=== PATIENT | female | born 1970 | race Caucasian/White ===

== ENCOUNTER 2020-08-22 15:40 | Inpatient (IN) | payer MEDICAID ==
[~2020-08-22] VITALS: Ht 157.5 cm; Wt 72.6 kg
[2020-08-22] VITALS (7 sets, daily range): BP systolic 93–109; BP diastolic 40–67
--- NOTE | 2020-08-22 16:40 | NUR ---
49 y.o female arrived with open surgical wound on the right under breast, serosanguious fluid. has slight fever, had surgery august 10. pt reports possible fall and open the surgical wound. AAOx4; heart rate increased. pain 7/10 from the surgical wound site. PMH: N/A Allergies: NKA
--- NOTE | 2020-08-22 16:40 | NUR ---
Patient ambulated to bed 5 with family. RN evaluating the patient at bedside.
--- NOTE | 2020-08-22 16:45 | NUR ---
field contact technician at bedside.
[2020-08-22 16:59] LABS: BASOPHILS % (AUTO) 0.2 % (0.0-2.0); HEMATOCRIT 38.5 % (36-48); HEMOGLOBIN 12.9 g/dL (12.0-16.0); LYMPHOCYTES # (AUTO) 0.6 K/uL (2.5-16.5); LYMPHOCYTES % (AUTO) 4.2 % (20.5-51.1); MEAN CORPUSCULAR HEMOGLOBIN 31 pg (27-31); MEAN CORPUSCULAR HGB CONC 33 g/dL (33-37); MEAN CORPUSCULAR VOLUME 91.5 fL (80-94); MONOCYTES # (AUTO) 0.7 K/uL (0.8-1.0); MONOCYTES % (AUTO) 4.7 % (1.7-9.3); NEUTROPHILS # (AUTO) 13.3 K/uL (1.8-7.7); NEUTROPHILS % (AUTO) 90.9 % (42.2-75.2); PLATELET COUNT (AUTO) 203 K/uL (140-450); RED BLOOD CELL COUNT(AUTO) 4.21 MIL/uL (4.20-5.40); RED CELL DISTRIBUTION WIDTH 13.8 % (11.6-13.7); WHITE BLOOD COUNT (AUTO) 14.6 K/uL (4.8-10.8)
--- NOTE | 2020-08-22 17:11 | NUR ---
Patient will be admitted to care of MD Celeste. Admited to OR. Will go to room 104 once finished with surgery. Belongings list completed. Report to OR Wilmer MCCORD.
[2020-08-22 17:17] LABS: PROTHROMBIN TIME 9.6 secs (10.8-13.4)
[2020-08-22 17:18] LABS: APPEARANCE,URINE CLEAR (CLEAR); BILIRUBIN,URINE NEGATIVE (NEGATIVE); BLOOD, URINE 1+ (NEGATIVE); COLOR,URINE YELLOW (YELLOW); LEUKOCYTE ESTERASE ,URINE TRACE (NEGATIVE); NITRITE, URINE NEGATIVE (NEGATIVE); PH,URINE 5.5 (5.0-9.0); UGLUCOSE NEGATIVE (NEGATIVE)
[2020-08-22 17:18] LABS: ALBUMIN 3.7 g/dL (3.4-5.0); ANION GAP 10.7 (8-16); CARBON DIOXIDE 26.9 mmol/L (21-32); CREATININE 0.8 mg/dL (0.6-1.3); POTASSIUM 3.6 mmol/L (3.5-5.1); TOTAL BILIRUBIN 0.9 mg/dL (0.0-1.0)
[2020-08-22 17:23] LABS: URIC ACID CRYSTALS,URINE 0-10 /HPF (None Seen); WBC,URINE 0-5 /HPF (0-5)
[2020-08-22] MEDS ORDERED: HYDROGEN PEROXIDE 3% 240 ML BTL TP ONE (17:30)
[2020-08-22] MEDS ORDERED: BUPIVACAINE-MPF/EPI 0.5% 30 ML VIAL INJ ONE (17:30)
--- NOTE | 2020-08-22 17:50 | NUR ---
report given to OR SURI Guillen
[2020-08-22] MEDS ORDERED: ceFAZolin 1,000 MG VIAL ONE (18:05)
[2020-08-22] MEDS ORDERED: HYDROmorphone 1 MG/ML AMP IVP PRN ×2 (18:10→19:15)
[2020-08-22] MEDS ORDERED: ONDANSETRON 4 MG/2 ML VIAL IVP PRN (18:10)
[2020-08-22] MEDS ORDERED: fentaNYL citrate 0.05 MG/ML VIAL ONE (18:11)
[2020-08-22] MEDS ORDERED: DEXAMETHASONE 4 MG/ML VIAL ONE (18:11)
[2020-08-22] MEDS ORDERED: DESFLURANE 240 ML BTL INH ONE (18:11)
[2020-08-22] MEDS ORDERED: KETOROLAC 30 MG/ML VIAL ONE (18:11)
[2020-08-22] MEDS ORDERED: ONDANSETRON 4 MG/2 ML VIAL ONE (18:11)
[2020-08-22] MEDS ORDERED: ACETAMINOPHEN 10 MG/ML 100 ML IV ONE (18:11)
[2020-08-22] MEDS ORDERED: PROPOFOL 200 MG/20 ML VIAL IV ONE (18:11)
[2020-08-22] MEDS ORDERED: ACETAMINOPHEN 100 ML IV SCH (19:00)
--- NOTE | 2020-08-22 19:10 | NUR ---
RECEIVED REPORT FROM DAY SHIFT NURSE FOR CONTINUITY OF CARE. PT IS STILL IN THE OR FOR I&D PROCEDURE. WILL WAIT FOR PT TO ARRIVE TO UNIT.
[2020-08-22] MEDS ORDERED: MORPHINE SULFATE 2 MG/ML SYR IVP PRN (19:15)
[2020-08-22] MEDS ORDERED: HYDROcodone/APAP 5/325 MG 1 TAB TAB PO PRN (19:15)
[2020-08-22] MEDS ORDERED: ACETAMINOPHEN 325 MG TAB PO PRN (19:15)
[2020-08-22] MEDS ORDERED: DEXT 5% /NACL 0.9% 1,000 ML IV SCH (19:15)
[2020-08-22] MEDS ORDERED: MORPHINE SULFATE 4 MG/ML SYR IV PRN (19:15)
[2020-08-22] MEDS ORDERED: ONDANSETRON 4 MG/2 ML VIAL IV PRN (19:15)
--- NOTE | 2020-08-22 19:40 | NUR ---
RECEIVED REPORT FROM OR NURSE FOR CONTINUITY OF CARE. PT IS AWAKE AND ALERT. A&OX4. SPEAKING APPROPRIATELY. CITIZEN OF [place] SPEAKING, BUT UNDERSTANDS OCCITAN WELL. PT DENIES PAIN AT THIS TIME. S/P RIGHT BREAST I&D WITH STERI-STRIP IN PLACE AND NO DRAINAGE AT THE SITE. ON RA WITH BREATHING UNLABORED. O2 SAT IS 98%. PT IS AMBULATORY WITH ASSISTANCE. STEADY GAIT. SKIN IS WARM AND DRY. IV IS IN THE LEFT AC SALINE LOCKED. WILL START FLUIDS ORDERED. PT IS STABLE. PLAN OF CARE DISCUSSED.
--- NOTE | 2020-08-22 20:15 | NUR ---
ASSISTED PT IN CALLING ON PT PHONE. PT'S / FAMILY CAME TO THE WINDOW TO VISIT THE PT. PT IS TALKING WITH FAMILY. SHE WAS ALSO PROVIDED SOME CRACKERS AND JUICE. PT IS TOLERATING EATING WELL.
--- NOTE | 2020-08-22 20:56 | NUR ---
PT STATES SHE HAS PAIN AT A SCALE OF 6/10 IN THE RIGHT BREAST WHERE THE SURGICAL INCISION IS LOCATED. PT WAS GIVEN NORCO FOR PAIN. WILL MONITOR PAIN LEVEL.
--- NOTE | 2020-08-22 22:00 | NUR ---
ROUNDED ON PT. SHE IS SITTING UP IN BED, WATCHING TV. PT DENIES PAIN AT THIS TIME. PT WAS GIVEN A SANDWICH REQUESTED AND SHES TOLERATING IT WELL. DENIES N/V. WILL CONTINUE TO MONITOR.
--- NOTE | 2020-08-23 | NUR ---
PT IS ASLEEP. CHEST RISE AND FALL IS SYMMETRICAL. NO RESPIRATORY DISTRESS NOTED ON RA. NO PAIN APPARENT. IV FLUIDS ARE INFUSING ORDERED. WILL CONTINUE TO MONITOR.
--- NOTE | 2020-08-23 02:09 | NUR ---
PT SLEEPING. NO DISTRESS OR PAIN AT THIS TIME. BREATHING IS UNLABORED ON RA. CALL LIGHT IS WITHIN REACH. BED IS IN THE LOWEST POSITION. PT IS STABLE.
--- NOTE | 2020-08-23 03:58 | NUR ---
PT IS STABLE. BREATHING IS REGULAR AND EVEN ON RA. NO DISTRESS OR PAIN NOTED. WILL CONTINUE TO MONITOR.
[2020-08-23 04:00] VITALS: BP 98/51
--- NOTE | 2020-08-23 06:00 | NUR ---
MADE ROUNDS ON PT. SHE IS SLEEPING COMFORTABLY IN SEMI FOWLERS POSITION. NO PAIN OR DISTRESS NOTED. FLUIDS ARE INFUSED ORDERED. PT IS STABLE.
[2020-08-23 06:11] LABS: HEMATOCRIT 36.4 % (36-48); HEMOGLOBIN 12.3 g/dL (12.0-16.0); LYMPHOCYTES # (AUTO) 0.6 K/uL (2.5-16.5); LYMPHOCYTES % (AUTO) 3.6 % (20.5-51.1); MEAN CORPUSCULAR HEMOGLOBIN 31 pg (27-31); MEAN CORPUSCULAR HGB CONC 34 g/dL (33-37); MEAN CORPUSCULAR VOLUME 90.9 fL (80-94); MONOCYTES # (AUTO) 0.4 K/uL (0.8-1.0); MONOCYTES % (AUTO) 2.4 % (1.7-9.3); NEUTROPHILS # (AUTO) 14.9 K/uL (1.8-7.7); PLATELET COUNT (AUTO) 176 K/uL (140-450); RED BLOOD CELL COUNT(AUTO) 4.01 MIL/uL (4.20-5.40); RED CELL DISTRIBUTION WIDTH 13.6 % (11.6-13.7); WHITE BLOOD COUNT (AUTO) 15.9 K/uL (4.8-10.8)
--- NOTE | 2020-08-23 07:05 | NUR ---
ENDORSED PT TO DAY SHIFT NURSE FOR CONTINUITY OF CARE. PT IS STABLE AT THIS TIME. PLAN OF CARE DISCUSSED.
--- NOTE | 2020-08-23 07:10 | NUR ---
RECEIVED PT FROM SNUFF CONTAINER INSPECTOR NURSEZACK, PT IS AWAKE AND SEATED ON THE BED WITH SIDE RAILS UP AND CALL LIGHT WITHIN REACH, PT IS ON RA AND IV LINE NOTED ON THE LAC G. 22 WITH NS INFUSING AT 50ML/HR, INTACT, PT IS S/P I&D ON THE RIGHT BREAST WITH STERI STRIPS INTACT, PT DENEIS PAIN NOW AND NO SIGN OF DISTRESS NOTED. WILL CONTINUE TO MONITOR PT.
--- NOTE | 2020-08-23 08:27 | NUR ---
PATIENT HAS BEEN SCREENED AND CATEGORIZED MODERATE NUTRITION RISK. PATIENT WILL BE SEEN WITHIN 3-5 DAYS OF ADMISSION. 08/25/20 08/27/[address]
--- NOTE | 2020-08-23 11:42 | NUR ---
IV LINE DISCONTINUED PATIENT C/O OF PAIN AND SWOLLEN TO IV SITE. PATIENT REFUSED TO START NEW LINE
--- NOTE | 2020-08-23 12:33 | NUR ---
PT WAS GIVEN IVPB ANTIBIOTIC NOW, WILL MONITOR PT.
--- NOTE | 2020-08-23 14:40 | NUR ---
PHOTO OF THE WOUND WAS TAKEN, PT REFUSED TO REMOVE STERI STRIPS, INTACT AND NO DRAINAGE NOTED. ATTACHED TO CHART.
--- NOTE | 2020-08-23 15:45 | NUR ---
DISCHARGED PT TO HOME ACCOMPANIED BY , IV LINE AND ARM BAND REMOVED, DISCHARGED TEACHINGS AND INSTRUCTIONS GIVEN TO PT AND VERBALIZED UNDERSTANDING
== END 2020-08-23 15:45 | disposition home or self-care (01) | DRG 813 ==
LOC: MED 15:40 → MTU 17:11
PROVIDERS: ADMIT Surgery; ATTEND Surgery
PROC: 0H9T0ZZ Drainage of Right Breast, Open Approach (ICD-10-PCS; principal; 2020-08-22 18:00)
DX: L76.32 Postprocedural hematoma of skin and subcutaneous tissue following other procedure (principal); T81.31XA Disruption of external operation (surgical) wound, not elsewhere classified, initial encounter; Z20.822 Contact with and (suspected) exposure to COVID-19; Y83.8 Other surgical procedures as the cause of abnormal reaction of the patient, or of later complication, without mention of misadventure at the time of the procedure
CPT/HCPCS: 36415; 71045; 80053; 81001; 85025; 85610; 85730; 87070; 87075; 87086; 87205; 93005; 99285; J0690; J0694; J1100; J1885; J2405; J2704; J3010; J3490; J7060; J7120